=== PATIENT | female | born 1960 | race Caucasian/White ===

== ENCOUNTER → 2023-12-19 14:44 | Outpatient (REF) | payer OTHER, SELFPAY | LOC: WDC 14:44 | PROVIDERS: ATTENDING PHYSICIAN Nurse Practitioner Family | DX: Z12.31 Encounter for screening mammogram for malignant neoplasm of breast (principal); Z87.891 Personal history of nicotine dependence | CPT/HCPCS: 71271; 77063; 77067 ==

== ENCOUNTER → 2024-07-26 10:10 | Outpatient (REF) | payer MEDICARE, OTHER, SELFPAY | LOC: RAD 10:10 | PROVIDERS: ATTENDING PHYSICIAN Nurse Practitioner Family; REFERRING PHYSICIAN Chiropractor | DX: M54.2 Cervicalgia (principal); M54.9 Dorsalgia, unspecified; M62.40 Contracture of muscle, unspecified site; M99.03 Segmental and somatic dysfunction of lumbar region; M53.2X7 Spinal instabilities, lumbosacral region; M99.01 Segmental and somatic dysfunction of cervical region; M54.12 Radiculopathy, cervical region; M99.02 Segmental and somatic dysfunction of thoracic region | CPT/HCPCS: 72052; 72072; 72110; 72220 ==

== ENCOUNTER → 2024-12-10 07:23 | Outpatient (REF) | payer MEDICARE, OTHER, SELFPAY | LOC: RCS 07:23 | PROVIDERS: ATTENDING PHYSICIAN Nurse Practitioner Family | DX: R00.2 Palpitations (principal); R07.89 Other chest pain | CPT/HCPCS: 93017 ==

== ENCOUNTER → 2024-12-23 07:15 | Outpatient (REF) | payer MEDICARE, OTHER, SELFPAY | LOC: RAD 07:15 | PROVIDERS: ATTENDING PHYSICIAN Nurse Practitioner Family | DX: Z87.891 Personal history of nicotine dependence (principal); Z72.0 Tobacco use | CPT/HCPCS: 71271 ==

== ENCOUNTER → 2025-02-24 09:02 | Outpatient (REF) | payer MEDICARE, OTHER, SELFPAY | LOC: RAD 09:02 | PROVIDERS: ATTENDING PHYSICIAN Nurse Practitioner Family | DX: M85.80 Other specified disorders of bone density and structure, unspecified site (principal); Z78.0 Asymptomatic menopausal state | CPT/HCPCS: 77080 ==

== ENCOUNTER → 2025-03-02 09:10 | Outpatient (REF) | payer MEDICARE, OTHER, SELFPAY | LOC: WDC 09:10 | PROVIDERS: ATTENDING PHYSICIAN Physician Assistant; FAMILY PHYSICIAN Nurse Practitioner Family | DX: N63.13 Unspecified lump in the right breast, lower outer quadrant (principal) | CPT/HCPCS: 76642; 77062; 77066 ==

== ENCOUNTER 2025-03-11 06:26 | Day surgery (SDC) | payer MEDICARE, OTHER, SELFPAY | END 2025-03-11 09:31 | disposition home or self-care (01) | LOC: GI 06:26 | PROVIDERS: ATTENDING PHYSICIAN Internal Medicine | DX: Z12.11 Encounter for screening for malignant neoplasm of colon (principal); K63.5 Polyp of colon; K58.9 Irritable bowel syndrome, unspecified; K64.8 Other hemorrhoids | CPT/HCPCS: 45380; 88305 ==